=== PATIENT | male | born 1960 | race Asian ===

== ENCOUNTER 2021-02-15 00:06 | Inpatient (IN) | payer OTHER ==
[~2021-02-15] VITALS: Ht 177.8 cm; Wt 54.8 kg
--- NOTE | ~2021-02-15 | HC ---
[facility] [place] [address] CONSULTATION Name: KINSEY LACY Room #: 219-P ADM IN M.R.#: [id number] Admission: 02/15/21 Attend Phys: Shaheen Radford Discharge: Date of : 62 Report #: [id number] THIS REPORT FOR: cc: NO FAMILY PHYSICIAN or PCP NO FAMILY PHYSICIAN or PCP Flex Clemens MD ~ DATE OF SERVICE: 02/15/2021 HISTORY OF PRESENT ILLNESS: This is a 60-year-old male patient who was evaluated by me for weakness on the right side as well as some speech difficulty. The symptoms started 2 days ago. Symptoms are worse according to the history, but the patient tells me it is about the same. He did not have any involvement of the right lower extremity. He denies any prior history of CVA. He does not know anything which makes it better or worse. REVIEW OF SYSTEMS: A 14-point review of system was carried out. He has no prior history of stroke, but he smokes. He is not a known diabetic or hypertensive. In fact, I carried out the 14-point review of system and it is pretty much unremarkable, the best I can tell from him. PAST MEDICAL HISTORY: Negative for stroke. FAMILY HISTORY: Negative for early age stroke. SOCIAL HISTORY: He smokes. He says he does not drink alcohol on a regular basis. NEUROLOGIC: The patient's examination indicates he is alert and responsive. His speech to me looks intact, but is difficult to tell. He thinks his memory and fund of knowledge is at baseline. Cranial nerve examination II-XII looks mostly unremarkable, does not look like the patient has any facial palsy. His strength may be slightly diminished on the right side as compared to the left side. Position sense is present on both sides. Reflexes are symmetrical. Plantars are mute. There is no ataxia. I could not look at the patient's fundus. It was difficult to feel pulses in the lower extremities. He has no edema, cyanosis, or jaundice. There is no carotid bruit. There is no thyroid mass. Cardiac examination was unremarkable. No respiratory difficulty was noticed. Blood pressure is 151/75, respiration is 22, pulse is 65, temperature is 97.5. LABORATORY DATA: Indicate a normal platelet count, normal PT, OT. The patient already had a CT of the head, MRI of the head, MRA of the head and carotid Doppler. He has a lacunar CVA, but rest of the exam is pretty much unremarkable. However, the MRI is pretty impressive with chronic white matter ischemic changes [address] [address] CONSULTATION Name: KINSEY LACY Room #: 219-P [facility] IN M.R.#: [id number] Admission: 02/15/21 Attend Phys: Shaheen Radford Discharge: Date of : 62 Report #: [id number] at such a young age. IMPRESSION AND PLAN: 1. Lacunar cerebrovascular accident. 2. Extensive chronic white matter ischemic changes. RECOMMENDATIONS: 1. Strong recommendation to stop smoking, both because of CVA and brain already showing extensive changes. 2. We will do blood workup was ordered for stroke as well as deep white matter ischemic changes. 3. He is on aspirin. 4. I will give him a loading dose of Plavix and from tomorrow, he can be started on 75 mg of p.o. Plavix. 5. Depending on PT, OT evaluation because of the stroke, he will also need a rehab evaluation and we will order that. Main management is going to be management of his vascular risk factors as summarized above. Thank you very much for this referral. By: [id number] Flex Clemens MD /nt
[2021-02-15 00:14] VITALS: BP 154/92
[2021-02-15] MEDS ORDERED: NOHOMEMEDICATIONS (00:25)
[2021-02-15 00:54] LABS: ABSOLUTE NEUTROPHILS 5.2 thou/uL (1.4-8.2); BASOPHILS 1.2 % (0.0-2.0); EOSINOPHILS 4.8 % (0.0-3.0); HEMATOCRIT 38.1 % (42.0-52.0); HEMOGLOBIN 13.4 gm/dL (14.0-18.0); LYMPHOCYTES 28.3 % (24.0-44.0); MCH 34.4 pg (26.0-34.0); MCHC 35.2 g/dL (28.0-37.0); MCV 97.9 fL (80.0-100.0); MONOCYTES 8.5 % (1.0-8.0); PLATELET COUNT 324 thou/uL (150-400); POLYS 57.2 % (36.0-66.0)
[2021-02-15 00:58] LABS: ANION GAP 9 mmol/L (7-16); BUN 11 mg/dL (7-18); CALCIUM 8.4 mg/dL (8.5-10.1); CHLORIDE 102 mmol/L (98-107); CO2 27 mmol/L (21-32); CREATININE 0.9 mg/dL (0.7-1.3); GLUCOSE 121 mg/dL (74-106); POTASSIUM 4.2 mmol/L (3.5-5.1); SODIUM 138 mmol/L (136-145)
[2021-02-15 01:08] LABS: ALBUMIN 2.9 g/dL (3.4-5.0); SGOT 25 U/L (15-37); SGPT 32 U/L (16-63); TOTAL BILIRUBIN 0.2 mg/dL (0.2-1.0); TOTAL PROTEIN 6.7 g/dL (6.4-8.2); TROPONIN-I <0.06 ng/mL (<0.06)
[2021-02-15 01:16] LABS: APTT 30.6 Seconds (24.5-32.8); INR 0.94; PROTIME 10.3 Seconds (10.5-12.1)
--- NOTE | 2021-02-15 07:22 | EKG ---
[place] [address] [facility] [place] [address] ELECTROCARDIOGRAM REPORT Name: LEONEL LACY Room #: 170-9 ADM IN M.R.#: [id number] Admission: 02/15/21 Attend Phys: Shaheen Radford Discharge: Date of : 62 Report #: [id number] [facility] ED Test Date: 2021-02-15 Test Time: 00:21:04 Pat Name: LEONEL LACY Department: Room: 170 Gender: M Nuclear Medical Tech: SURINDER : 1960 Requested By: Karsten Grayson Order Number: [id number] MD: Leonel Lombardo Measurements Intervals [place] Rate: 97 P: 50 [place]: 142 QRS: 64 QRSD: 95 T: 61 QT: 365 QTc: 464 Interpretive Statements Sinus rhythm Probable left atrial enlargement Baseline wander in lead(s) V2,V3 No previous ECG available for comparison Electronically Signed On 02-15-2021 7:21:59 CDT by Leonel Lombardo [email or web address] <ELECTRONICALLY SIGNED> By: Leonel Lombardo MD, [facility] 02/15/21 0721 002 0021 Leonel Lombardo MD, FACLashawn /EPI
--- NOTE | 2021-02-15 10:00 | NUR ---
PT ABLE TO MAINTAIN AND SWALLOW SECRETIONS. PT WAS ABLE TO DRINK WATER WITHOUT COUGHING OR CHOKING. PT GIVEN MEAL TRAY AT THIS TIME AND ENCOURAGED TO EAT SLOW
[2021-02-15 12:40] LABS: CHOLESTEROL 222 mg/dL (<200); HDL CHOLESTEROL 43 mg/dL (>40); LDL CHOLESTEROL 158 mg/dL (<100); TC:HDL 5.2 Ratio (Not establshd); TRIGLYCERIDE 105 mg/dL (<150); VLDL 21 mg/dL (<40)
[2021-02-15 13:06] LABS: FOLIC ACID 5.4 ng/mL (8.6-58.9)
[2021-02-15 14:45] VITALS: BP 151/75
--- NOTE | 2021-02-15 16:24 | NUR ---
PT ADMITTED TO 2N-219 AT 1430. PT A/OX 4, PLESANT. SPOUSE AT BEDSIDE. C/O R SIDED WEAKNESS AND SOME SLURRED SPEECH. ST AT BEDSIDE FOR SWALLOW EVAL AND CLEARED PT. PT NIH REASSESSMENT WAS 1 FOR MINOR FACIAL WEAKNESS ON R SIDE SMILE. PT DENIES NUMBNESS OR TINGLING. ORIENTED TO ROOM AND UPDATED ON POC. VSS. DENIES PAIN. UP WITH SBA. CONTINENT OF B/B. PT DENIES PMHX AND NO HOME MEDICATIONS OR ALLERGIES REPORTED. WILL CONT TO MONITOR AND FOLLOW POC.
[2021-02-15 19:35] VITALS: BP 129/73
[2021-02-15 23:42] VITALS: BP 114/75
[2021-02-16 01:06] LABS: GLYCOHEMOGLOBIN (HGB A1C) 5.9 % (4.8-5.6)
[2021-02-16 02:06] LABS: GLYCOHEMOGLOBIN (HGB A1C) 5.9 % (4.8-5.6)
[2021-02-16 03:21] LABS: BASOPHILS 1.3 % (0.0-2.0); EOSINOPHILS 6.2 % (0.0-3.0); HEMATOCRIT 40.4 % (42.0-52.0); HEMOGLOBIN 13.7 gm/dL (14.0-18.0); LYMPHOCYTES 32.3 % (24.0-44.0); MCH 33.4 pg (26.0-34.0); MCHC 33.9 g/dL (28.0-37.0); MCV 98.6 fL (80.0-100.0); PLATELET COUNT 324 thou/uL (150-400); POLYS 51.2 % (36.0-66.0); WBC 7.8 thou/uL (4.0-11.0)
[2021-02-16 03:30] LABS: CALCIUM 8.1 mg/dL (8.5-10.1); CREATININE 0.8 mg/dL (0.7-1.3); POTASSIUM 4.2 mmol/L (3.5-5.1)
[2021-02-16 03:34] LABS: CHOLESTEROL 206 mg/dL (<200); HDL CHOLESTEROL 40 mg/dL (>40); LDL CHOLESTEROL 146 mg/dL (<100); TC:HDL 5.2 Ratio (Not establshd); TRIGLYCERIDE 100 mg/dL (<150); VLDL 20 mg/dL (<40)
[2021-02-16 04:21] LABS: SERUM ASSESSMENT Clear
[2021-02-16 04:27] VITALS: BP 116/66
[2021-02-16 08:34] VITALS: BP 124/71
[2021-02-16] MEDS ORDERED: LIPITOR40 MG PO (09:25)
[2021-02-16] MEDS ORDERED: BAYER CHEWABLE81 MG PO (09:26)
[2021-02-16] MEDS ORDERED: PLAVIX 75 MG TA75 M1 PO (09:26)
--- NOTE | 2021-02-16 10:58 | 2DMMODE ---
[facility] [address] [place] [address] 2 D/M-MODE ECHOCARDIOGRAM Name: KINSEY LACY Room #: 219-P ADM IN M.R.#: [id number] Admission: 02/15/21 Attend Phys: Shaheen Radford Discharge: Date of : 62 Report #: [id number] THIS REPORT FOR: cc: NO FAMILY PHYSICIAN or PCP NO FAMILY PHYSICIAN or PCP Manjit Nesbitt MD ~ APPROVED REPORT Study performed: 02/16/2021 09:53:57 EXAM: Comprehensive 2D, Doppler, and color-flow Echocardiogram Patient Location: Bedside Room #: 219 Status: routine BSA: 1.68 HR: 74 bpm BP: 124/74 mmHg Rhythm: NSR Other Information Study Quality: Good Indications CVA/TIA Echo Enhancing Agent Indication: Rule out Shunt Agent(s) / Amount(s) Used: Agitated Saline 7 cc 2D Dimensions IVSd: 7.90 (7-11mm) LVOT Diam: 19.97 (18-24mm) LVDd: 51.27 mm PWd: 8.46 (7-11mm) Ascending Ao: 33.17 (22-36mm) LVDs: 36.79 (25-40mm) Left Atrium: 28.79 (27-40mm) Aortic Root: 32.26 mm IVC: 11.00 mm Volumes Left Atrial Volume (Systole) Single Plane 4CH: 25.56 mL Single Plane 2CH: 18.49 mL LA ESV Index: 14.00 mL/m2 Aortic Valve AoV Peak Aubrey.: 0.87 m/s [facility] [address] [place] [address] 2 D/M-MODE ECHOCARDIOGRAM Name: KINSEY LACY Room #: 219-P ADM IN M.R.#: [id number] Admission: 02/15/21 Attend Phys: Shaheen Newton Discharge: Date of : 62 Report #: [id number] AO Peak Gr.: 3.03 mmHg LVOT Max P.41 mmHg LVOT Max V: 0.78 m/s SANDY Vmax: 2.80 cm2 Mitral Valve E/A Ratio: 0.7 MV Decel. Time: 218.05 ms MV E Max Aubrey.: 0.60 m/s MV A Aubrey.: 0.81 m/s MV PHT: 63.24 ms IVRT: 119.95 ms Pulmonary Valve PV Peak Aubrey.: 0.58 m/s PV Peak Gr.: 1.33 mmHg Pulmonary Vein P Vein S: 0.35 m/s P Vein A: 0.23 m/s P Vein D: 0.31 m/s P Vein A Dur.: 69.2 msec P Vein S/D Ratio: 1.13 Left Ventricle The left ventricle is normal size. There is normal LV segmental wall motion. There is normal left ventricular wall thickness. Left ventricular systolic function is normal. The left ventricular ejection fraction is within the normal range. LVEF is 50-55%. Grade I - abnormal relaxation pattern. Right Ventricle The right ventricle is normal size. The right ventricular systolic function is normal. Atria The left atrium size is normal. Injection of bubbles documented no interatrial shunt. The right atrium size is normal. Aortic Valve The aortic valve is normal in structure. No aortic regurgitation is present. There is no aortic valvular stenosis. Mitral Valve The mitral valve is normal in structure. There is no mitral valve regurgitation noted. No evidence of mitral valve stenosis. Tricuspid Valve The tricuspid valve is normal in structure. There is no tricuspid valve regurgitation noted. [facility] [address] [place] [address] 2 D/M-MODE ECHOCARDIOGRAM Name: KINSEY LACY Room #: 219-P [facility] IN M.R.#: [id number] Admission: 02/15/21 Attend Phys: Shaheen Newton Discharge: Date of : 62 Report #: [id number] Pulmonic Valve The pulmonary valve is normal in structure. There is no pulmonic valvular regurgitation. Great Vessels The aortic root is normal in size. IVC is normal in size and collapses >50% with inspiration. Pericardium There is no pericardial effusion. <Conclusion> The left ventricle is normal size. There is normal left ventricular wall thickness. Left ventricular systolic function is normal. Grade I - abnormal relaxation pattern. The right ventricle is normal size. The left atrium size is normal. Injection of bubbles documented no interatrial shunt. The aortic valve is normal in structure. There is no mitral valve regurgitation noted. <ELECTRONICALLY SIGNED> By: Manjit Nesbitt MD 02/16/21 1058 [id number] [id number] Manjit Nesbitt MD /INF
[2021-02-16 11:50] VITALS: BP 116/71
[2021-02-16 12:03] VITALS: BP 116/71
[2021-02-16 12:20] VITALS: BP 116/71
--- NOTE | 2021-02-16 12:21 | NUR ---
Pt cleared for dc home today per neuro/the attending/rehab medicine/therapy. Good rx coupons/[facility] resources provided along with 30 days worth of his scripts. /son to help him arrange follow as they are fluent in [place].
[2021-02-16 14:01] VITALS: BP 116/71
--- NOTE | 2021-02-16 14:51 | NUR ---
ASSUMED CARE SHIFT CHANGE. VSS. DENIES PAIN. O2 SATS WNL RA. COMMUNICATES NEEDS WELL. DC ORDERS. DISCUSSED WITH PT AND DAUGHTER. COMMUNICATES UNDERSTANDING. MEDS FILLED HERE. PT EDUCATED ON [facility], RESOURCES GIVEN PER CASE MANAGEMENT. TELE REMOVED. IV REMOVED. PT LEFT UNIT WITH ALL BELONGINGS ACCOMPANIED BY DAUGHTER.
[2021-02-17 11:08] LABS: ANA INTERPRETATION Negative (Negative)
[2021-02-17 22:06] LABS: SYPHILIS AB Non Reactive (Non Reactive)
== END 2021-02-16 14:49 | disposition home or self-care (01) | DRG 65 ==
LOC: ER 00:06 → 2N 01:59 → EROBS 01:59 → 2N 14:24
PROVIDERS: Emergency Medicine; Nurse Practitioner; Psychiatry & Neurology Neuromuscular Medicine; ADMIT Hospitalist; ATTEND Hospitalist
DX: I63.81 Other cerebral infarction due to occlusion or stenosis of small artery (principal); E44.0 Moderate protein-calorie malnutrition; Z68.1 Body mass index [BMI] 19.9 or less, adult; R47.81 Slurred speech; F17.210 Nicotine dependence, cigarettes, uncomplicated; Z71.6 Tobacco abuse counseling; Z20.822 Contact with and (suspected) exposure to COVID-19
CPT/HCPCS: 10081